=== PATIENT | female | born 1970 | race Caucasian/White ===

== ENCOUNTER 2023-08-08 15:09 | Emergency (ER) | payer OTHER ==
[2023-08-08] MEDS: Sodium Chloride 0.9% 1,000 ML IV STA ×2 (16:29→19:41)
[2023-08-08 16:43] LABS: BARBITURATE SCREEN,URINE NEGATIVE (CUTOFF=200); BENZODIAZEPINES SCREEN,URINE NEGATIVE (CUTOFF=150); BUPRENORPHINE SCREEN,URINE NEGATIVE (CUTOFF=10); METHADONE SCREEN, URINE NEGATIVE (CUTOFF=200); METHAMPHETAMINES SCREEN, URINE NEGATIVE (CUTOFF=500); OXYCODONE SCREEN,URINE NEGATIVE (CUT0FF=100); THC SCREEN,URINE 20 NG/ML NEGATIVE (CUTOFF=50)
[2023-08-08 16:46] LABS: AMPHETAMINES SCREEN, URINE NEGATIVE (CUTOFF=500)
[2023-08-08 17:04] LABS: HEMATOCRIT 45.4 % (37.0-47.0); HEMOGLOBIN 15.6 gm/dl (12.0-16.0); MEAN CORPUSCULAR HEMOGLOBIN 32.8 pg (28.0-32.0); MEAN CORPUSCULAR HGB CONC 34.4 g/dl (32.0-36.0); MEAN CORPUSCULAR VOLUME 95.4 fl (83.0-99.0); MEAN PLATELET VOLUME 10.1 fl (9.4-12.3); PLATELET COUNT,PLT 199 K/mm3 (150-400); RED BLOOD CELL COUNT 4.76 M/mm3 (4.10-5.30); WHITE BLOOD CELL COUNT,WBC 4.42 K/mm3 (3.9-11.3)
[2023-08-08] MEDS ORDERED: Acetaminophen 325 MG Tab PO ONE (17:12)
[2023-08-08 17:37] LABS: A/G RATIO 0.9 (1-2); ALBUMIN 3.7 g/dl (3.4-5.0); BILIRUBIN TOTAL 0.5 mg/dL (0.2-1.0); BUN/CREATININE RATIO 12.2 (14-18); CALCIUM 8.7 mg/dL (8.5-10.1); CREATININE 0.9 mg/dL (0.55-1.02); EST CRCL DRUG DOSING (CG) 57.17 mL/min; ETHANOL BLOOD MEDICAL 0.34 gm% (0.00); PROTEIN TOTAL,TP 7.9 g/dl (6.4-8.2); TSH 0.891 uIU/mL (0.358-3.74)
[2023-08-08 17:38] LABS: BAND PERCENT MAN 0 % (0-10); BASOPHILS PERCENT MAN 1 (0.1-1.2); EOSINOPHILS PERCENT MAN 9 % (0.7-5.8); LYMPHOCYTES % ATYPICAL MANUAL 4 %; LYMPHOCYTES PERCENT MAN 22 % (20-40); MONOCYTES PERCENT MAN 6 % (2-10)
[2023-08-08 17:39] LABS: PLATELET COUNT ESTIMATE ADEQUATE
[2023-08-08] MEDS ORDERED: LORazepam 2 MG/ML SDV IVPUSH ONE ×2 (19:27→21:06)
[2023-08-08] MEDS ORDERED: Sodium Chloride 0.9% 1,000 ML IV STA (19:27)
[2023-08-08] MEDS ORDERED: LORazepam 2 MG/ML SDV ONE (21:04)
== END 2023-08-08 22:56 ==
LOC: JD.ED 15:09
DX: F10.920 Alcohol use, unspecified with intoxication, uncomplicated (principal); Z88.1 Allergy status to other antibiotic agents
CPT/HCPCS: 36415; 80053; 80143; 80179; 80306; 80307; 83735; 84443; 85007; 85027; 93005; 96374; 96376; 99284; A9270; J2060; J7030; 93010

== ENCOUNTER 2023-08-09 19:03 | Emergency (ER) | payer OTHER ==
[2023-08-09] MEDS ORDERED: cloNIDine 0.1 MG Tab PO ONE (19:34)
[2023-08-09] MEDS ORDERED: LORazepam 1 MG Tab PO ONE (20:02)
== END 2023-08-09 21:05 | disposition home or self-care (01) ==
LOC: JD.ED 19:03
DX: I10 Essential (primary) hypertension (principal); F10.930 Alcohol use, unspecified with withdrawal, uncomplicated; Z86.16 Personal history of COVID-19; Z88.1 Allergy status to other antibiotic agents; Z79.899 Other long term (current) drug therapy
CPT/HCPCS: 99283; A9270

== ENCOUNTER 2023-08-30 12:13 | Inpatient (IN) | payer OTHER ==
[2023-08-30] MEDS ORDERED: Sodium Chloride 0.9% 10 ML Syringe FLUSH PRN (13:23)
[2023-08-30] MEDS ORDERED: Sodium Chloride 0.9% 1,000 ML IV ONE ×2 (13:23→15:23)
[2023-08-30] MEDS ORDERED: LORazepam 2 MG/ML SDV IVPUSH ONE (13:24)
[2023-08-30 13:49] LABS: BASOPHILS ABSOLUTE AUTO 0.1 K/mm3 (0.0-0.2); BASOPHILS PERCENT AUTO 0.4 % (0.0-1.0); EOSINOPHILS ABSOLUTE AUTO 0.3 K/mm3 (0.0-0.4); EOSINOPHILS PERCENT AUTO 2.4 % (0.0-6.0); HEMATOCRIT 47.6 % (37.0-47.0); HEMOGLOBIN 15.1 gm/dl (12.0-16.0); IMMATURE GRAN ABSOLUTE AUTO 0.07 K/mm3 (0.00-0.05); IMMATURE GRAN PERCENT AUTO 0.6 % (0.0-0.4); LYMPHOCYTES ABSOLUTE AUTO 4.2 K/mm3 (1.0-4.8); LYMPHOCYTES PERCENT AUTO 33.1 % (24.0-44.0); MEAN CORPUSCULAR HEMOGLOBIN 32.5 pg (28.0-32.0); MEAN CORPUSCULAR HGB CONC 31.7 g/dl (32.0-36.0); MEAN PLATELET VOLUME 10.7 fl (9.4-12.3); MONOCYTES PERCENT AUTO 7.8 % (0.0-8.0); NEUTROPHILS PERCENT AUTO 55.7 % (41.0-71.0); PLATELET COUNT,PLT 249 K/mm3 (150-400); RED BLOOD CELL COUNT 4.65 M/mm3 (4.10-5.30); WHITE BLOOD CELL COUNT,WBC 12.57 K/mm3 (3.9-11.3)
[2023-08-30 13:51] LABS: MEAN CORPUSCULAR VOLUME 102.4 fl (83.0-99.0)
[2023-08-30 14:33] LABS: ALBUMIN 4.1 g/dl (3.4-5.0); ANION GAP 30.4 (5-15); BILIRUBIN TOTAL 0.8 mg/dL (0.2-1.0); BUN/CREATININE RATIO 14.6 (14-18); CALCIUM 9.8 mg/dL (8.5-10.1); CREATININE 1.3 mg/dL (0.55-1.02); EST CRCL DRUG DOSING (CG) 39.58 mL/min; POTASSIUM,K 3.4 mEq/L (3.5-5.1); PROTEIN TOTAL,TP 8.4 g/dl (6.4-8.2); TSH 2.408 uIU/mL (0.358-3.74)
[2023-08-30] MEDS ORDERED: LORazepam 1 MG Tab PO ONE (15:57)
[2023-08-30] MEDS ORDERED: Docusate Sodium 100 MG Cap PO PRN (16:20)
[2023-08-30] MEDS ORDERED: Metoprolol Tartrate 25 MG Tab PO PRN (16:43)
[2023-08-30] MEDS ORDERED: Multivitamin Tab PO ONE (16:43)
[2023-08-30] MEDS ORDERED: Potassium Chloride 20 MEQ Tab.ER PO ONE (16:49)
[2023-08-30] MEDS ORDERED: hydrALAZINE 20 MG/ML SDV IVPUSH PRN (16:50)
[2023-08-30] MEDS: hydrOXYzine HCl 25 MG Tab PO SCH ×2 (17:29→20:30)
[2023-08-30] MEDS: Folic Acid 1 MG Tab PO SCH (17:38)
[2023-08-30] MEDS: Losartan 50 MG Tab PO SCH (17:38)
[2023-08-30] MEDS: Thiamine 100 MG Tab PO SCH (17:38)
[2023-08-30] MEDS: Pantoprazole 40 MG Vial IV SCH (17:39)
[2023-08-30] MEDS: LORazepam 1 MG Tab PO SCH (20:30)
[2023-08-30] MEDS: Citalopram 20 MG Tab PO SCH (20:32)
[2023-08-30] MEDS ORDERED: Non-Formulary Medication 1 Each (Escitalopram Oxalate 20 MG Tablet) PO SCH (21:00)
[2023-08-30 21:10] LABS: BARBITURATE SCREEN,URINE NEGATIVE (CUTOFF=200); BENZODIAZEPINES SCREEN,URINE PRESUMPTIVE POSITIVE (CUTOFF=150); BUPRENORPHINE SCREEN,URINE NEGATIVE (CUTOFF=10); METHADONE SCREEN, URINE NEGATIVE (CUTOFF=200); METHAMPHETAMINES SCREEN, URINE NEGATIVE (CUTOFF=500); OXYCODONE SCREEN,URINE NEGATIVE (CUT0FF=100); THC SCREEN,URINE 20 NG/ML NEGATIVE (CUTOFF=50)
[2023-08-30 21:12] LABS: AMPHETAMINES SCREEN, URINE NEGATIVE (CUTOFF=500)
[2023-08-31] MEDS: hydrOXYzine HCl 25 MG Tab PO SCH ×7 (00:11→23:52)
[2023-08-31] MEDS: LORazepam 1 MG Tab PO SCH ×3 (00:14→12:40)
[2023-08-31] MEDS ORDERED: BUPROPION 75 MG PO SCH (09:00)
[2023-08-31] MEDS: buPROPion 150 MG Tab.ER PO SCH (09:30)
[2023-08-31] MEDS: Thiamine 100 MG Tab PO SCH (09:32)
[2023-08-31] MEDS: Losartan 50 MG Tab PO SCH (09:32)
[2023-08-31] MEDS: Folic Acid 1 MG Tab PO SCH (09:32)
[2023-08-31] MEDS: Pantoprazole 40 MG Vial IV SCH (09:33)
[2023-08-31 09:36] LABS: HEMATOCRIT 37.3 % (37.0-47.0); HEMOGLOBIN 12.4 gm/dl (12.0-16.0); MEAN CORPUSCULAR HEMOGLOBIN 31.5 pg (28.0-32.0); MEAN CORPUSCULAR HGB CONC 33.2 g/dl (32.0-36.0); MEAN CORPUSCULAR VOLUME 94.7 fl (83.0-99.0); MEAN PLATELET VOLUME 10.7 fl (9.4-12.3); PLATELET COUNT,PLT 172 K/mm3 (150-400); RED BLOOD CELL COUNT 3.94 M/mm3 (4.10-5.30)
[2023-08-31 09:54] LABS: ANION GAP 15.7 (5-15); EST CRCL DRUG DOSING (CG) 51.46 mL/min; MAGNESIUM 1.6 mg/dL (1.8-2.4); PHOSPHORUS 2.3 mg/dL (2.6-4.7); POTASSIUM,K 3.7 mEq/L (3.5-5.1); TSH 1.376 uIU/mL (0.358-3.74)
[2023-08-31 10:34] LABS: CALCIUM 8.2 mg/dL (8.5-10.1)
[2023-08-31] MEDS ORDERED: Magnesium Sulfate/Water 2 GM/50 ML BAG IV ONE (13:30)
[2023-08-31] MEDS ORDERED: Phosphorus #1 250 MG Tab PO ONE (13:30)
[2023-08-31 17:48] LABS: MAGNESIUM 2.1 mg/dL (1.8-2.4); PHOSPHORUS 2.9 mg/dL (2.6-4.7)
[2023-08-31] MEDS: Citalopram 20 MG Tab PO SCH (20:34)
[2023-09-01] MEDS: hydrOXYzine HCl 25 MG Tab PO SCH ×3 (03:40→11:20)
[2023-09-01] MEDS: Pantoprazole 40 MG Vial IV SCH (07:59)
[2023-09-01] MEDS: Losartan 50 MG Tab PO SCH (08:07)
[2023-09-01] MEDS: buPROPion 150 MG Tab.ER PO SCH (08:07)
[2023-09-01] MEDS: Folic Acid 1 MG Tab PO SCH (08:08)
[2023-09-01] MEDS: Thiamine 100 MG Tab PO SCH (08:09)
== END 2023-09-01 11:46 | disposition home or self-care (01) | DRG 897 ==
LOC: JD.ED 12:13 → JD.ICU 16:20 → JD.ED 17:03
PROVIDERS: ADMIT Internal Medicine; ATTEND Internal Medicine
DX: F10.139 Alcohol abuse with withdrawal, unspecified (principal); N17.9 Acute kidney failure, unspecified; F10.129 Alcohol abuse with intoxication, unspecified; I10 Essential (primary) hypertension; E78.00 Pure hypercholesterolemia, unspecified; F41.9 Anxiety disorder, unspecified; F32.A Depression, unspecified; R56.9 Unspecified convulsions; E87.6 Hypokalemia; R74.01 Elevation of levels of liver transaminase levels; Z88.1 Allergy status to other antibiotic agents; Z79.899 Other long term (current) drug therapy; Z86.16 Personal history of COVID-19
CPT/HCPCS: 36415; 80048; 80053; 80143; 80179; 80306; 80307; 83735; 84100; 84443; 85025; 85027; 96361; 96374; 99285; 99285-25; A9270-GY; C9113; J2060; J3475; J3490; J7030

== ENCOUNTER 2023-10-29 12:36 | Emergency (ER) | payer OTHER | END 2023-10-29 14:22 | disposition left against medical advice (07) | LOC: JD.ED 12:36 | DX: F10.129 Alcohol abuse with intoxication, unspecified (principal); I10 Essential (primary) hypertension; Z79.899 Other long term (current) drug therapy; Z88.1 Allergy status to other antibiotic agents; Z86.16 Personal history of COVID-19; Z53.29 Procedure and treatment not carried out because of patient's decision for other reasons; Y90.9 Presence of alcohol in blood, level not specified | CPT/HCPCS: 99284 ==

== ENCOUNTER 2024-01-12 19:56 | Emergency (ER) | payer OTHER ==
[2024-01-12] MEDS: Ondansetron 4 MG/2 ML SDV IVPUSH ONE (21:15)
[2024-01-12] MEDS: Sodium Chloride 0.9% 1,000 ML IV STA ×2 (21:15→22:38)
[2024-01-12 21:22] LABS: HEMATOCRIT 43.6 % (37.0-47.0); HEMOGLOBIN 14.8 gm/dl (12.0-16.0); MEAN CORPUSCULAR HEMOGLOBIN 30.6 pg (28.0-32.0); MEAN CORPUSCULAR HGB CONC 33.9 g/dl (32.0-36.0); MEAN CORPUSCULAR VOLUME 90.3 fl (83.0-99.0); MEAN PLATELET VOLUME 9.3 fl (9.4-12.3); PLATELET COUNT,PLT 324 K/mm3 (150-400); RED BLOOD CELL COUNT 4.83 M/mm3 (4.10-5.30); WHITE BLOOD CELL COUNT,WBC 7.13 K/mm3 (3.9-11.3)
[2024-01-12] MEDS: LORazepam 2 MG/ML SDV IVPUSH ONE (21:29)
[2024-01-12 21:31] LABS: AMPHETAMINES SCREEN, URINE NEGATIVE (CUTOFF=500); BARBITURATE SCREEN,URINE NEGATIVE (CUTOFF=200); BENZODIAZEPINES SCREEN,URINE NEGATIVE (CUTOFF=150); BUPRENORPHINE SCREEN,URINE NEGATIVE (CUTOFF=10); METHADONE SCREEN, URINE NEGATIVE (CUTOFF=200); METHAMPHETAMINES SCREEN, URINE NEGATIVE (CUTOFF=500); OXYCODONE SCREEN,URINE NEGATIVE (CUT0FF=100); THC SCREEN,URINE 20 NG/ML NEGATIVE (CUTOFF=50)
[2024-01-12 21:43] LABS: BAND PERCENT MAN 1 % (0-10); BASOPHILS PERCENT MAN 0 (0.1-1.2); EOSINOPHILS PERCENT MAN 7 % (0.7-5.8); LYMPHOCYTES % ATYPICAL MANUAL 0 %; LYMPHOCYTES PERCENT MAN 52 % (20-40); MONOCYTES PERCENT MAN 6 % (2-10); PLATELET COUNT ESTIMATE ADEQUATE
[2024-01-12 21:51] LABS: ALBUMIN 4.1 g/dl (3.4-5.0); ANION GAP 14.8 (5-15); BILIRUBIN TOTAL 0.2 mg/dL (0.2-1.0); BUN/CREATININE RATIO 14.4 (14-18); CALCIUM 8.9 mg/dL (8.5-10.1); CREATININE 0.9 mg/dL (0.55-1.02); EST CRCL DRUG DOSING (CG) 56.52 mL/min; ETHANOL BLOOD MEDICAL 0.36 gm% (0.00); POTASSIUM,K 3.8 mEq/L (3.5-5.1); PROTEIN TOTAL,TP 8.2 g/dl (6.4-8.2); TSH 2.523 uIU/mL (0.358-3.74)
== END 2024-01-12 23:55 | disposition left against medical advice (07) ==
LOC: JD.ED 19:56
DX: F10.129 Alcohol abuse with intoxication, unspecified (principal); I10 Essential (primary) hypertension; E78.00 Pure hypercholesterolemia, unspecified; Z86.16 Personal history of COVID-19; Z79.899 Other long term (current) drug therapy; Y90.8 Blood alcohol level of 240 mg/100 ml or more; Z88.1 Allergy status to other antibiotic agents
CPT/HCPCS: 36415; 80053; 80143; 80179; 80306; 80307; 81025; 83735; 84443; 85007; 85027; 93005; 96361; 96374; 96375; 99284; J2060; J2405; J7030; 93010; 99283

== ENCOUNTER 2024-01-13 15:48 | Emergency (ER) | payer OTHER ==
[2024-01-13 16:28] LABS: BASOPHILS ABSOLUTE AUTO 0.1 K/mm3 (0.0-0.2); BASOPHILS PERCENT AUTO 1.1 % (0.0-1.0); EOSINOPHILS ABSOLUTE AUTO 0.3 K/mm3 (0.0-0.4); EOSINOPHILS PERCENT AUTO 5.8 % (0.0-6.0); HEMATOCRIT 39.9 % (37.0-47.0); HEMOGLOBIN 13.5 gm/dl (12.0-16.0); LYMPHOCYTES PERCENT AUTO 43.3 % (24.0-44.0); MEAN CORPUSCULAR HEMOGLOBIN 30.5 pg (28.0-32.0); MEAN CORPUSCULAR HGB CONC 33.8 g/dl (32.0-36.0); MEAN CORPUSCULAR VOLUME 90.3 fl (83.0-99.0); MEAN PLATELET VOLUME 9.3 fl (9.4-12.3); MONOCYTES ABSOLUTE AUTO 0.6 K/mm3 (0.0-0.8); MONOCYTES PERCENT AUTO 12.8 % (0.0-8.0); NEUTROPHILS ABSOLUTE AUTO 1.7 K/mm3 (1.8-7.7); PLATELET COUNT,PLT 297 K/mm3 (150-400); RED BLOOD CELL COUNT 4.42 M/mm3 (4.10-5.30); WHITE BLOOD CELL COUNT,WBC 4.67 K/mm3 (3.9-11.3)
[2024-01-13] MEDS: Ondansetron 4 MG/2 ML SDV IVPUSH ONE (16:33)
[2024-01-13] MEDS: Thiamine 200 MG/2 ML MDV IVPUSH ONE (16:33)
[2024-01-13] MEDS: Sodium Chloride 0.9% 10 ML Syringe FLUSH PRN (16:33)
[2024-01-13] MEDS: Sodium Chloride 0.9% 1,000 ML IV SCH (16:33)
[2024-01-13] MEDS: LORazepam 2 MG/ML SDV IVPUSH ONE ×2 (16:33→19:53)
[2024-01-13 16:47] LABS: A/G RATIO 0.9 (1-2); ALBUMIN 3.5 g/dl (3.4-5.0); ANION GAP 15.9 (5-15); BILIRUBIN TOTAL 0.2 mg/dL (0.2-1.0); CALCIUM 8.3 mg/dL (8.5-10.1); EST CRCL DRUG DOSING (CG) 50.86 mL/min; ETHANOL BLOOD MEDICAL 0.29 gm% (0.00); MAGNESIUM 1.9 mg/dL (1.8-2.4); POTASSIUM,K 3.9 mEq/L (3.5-5.1); PROTEIN TOTAL,TP 7.3 g/dl (6.4-8.2)
[2024-01-13 17:43] LABS: BARBITURATE SCREEN,URINE NEGATIVE (CUTOFF=200); BENZODIAZEPINES SCREEN,URINE NEGATIVE (CUTOFF=150); BUPRENORPHINE SCREEN,URINE NEGATIVE (CUTOFF=10); METHADONE SCREEN, URINE NEGATIVE (CUTOFF=200); METHAMPHETAMINES SCREEN, URINE NEGATIVE (CUTOFF=500); OXYCODONE SCREEN,URINE NEGATIVE (CUT0FF=100); THC SCREEN,URINE 20 NG/ML NEGATIVE (CUTOFF=50)
[2024-01-13 17:44] LABS: AMPHETAMINES SCREEN, URINE NEGATIVE (CUTOFF=500)
== END 2024-01-13 21:29 | disposition home or self-care (01) ==
LOC: JD.ED 15:48
DX: F10.120 Alcohol abuse with intoxication, uncomplicated (principal); I10 Essential (primary) hypertension; Z88.1 Allergy status to other antibiotic agents; Z79.899 Other long term (current) drug therapy; Z86.16 Personal history of COVID-19; Y90.9 Presence of alcohol in blood, level not specified
CPT/HCPCS: 36415; 80053; 80143; 80179; 80306; 80307; 83735; 85025; 96361; 96374; 96375; 96376; 99284; J2060; J2405; J3411; J3490; J7030